=== PATIENT | male | born 1955 | race Caucasian/White ===

== ENCOUNTER 2023-07-18 10:00 | Outpatient (RCR) | payer MEDICARE, OTHER | END 2023-07-19 | disposition home or self-care (01) | LOC: PT.GENESIS | DX: M54.2 Cervicalgia (principal) ==

== ENCOUNTER 2023-08-01 09:45 | Outpatient (RCR) | payer MEDICARE, OTHER | END 2023-08-19 | disposition home or self-care (01) | LOC: PT.GENESIS | DX: M54.2 Cervicalgia (principal) ==